=== PATIENT | female | born 2000 | race Two or more races ===

== ENCOUNTER 2023-01-10 09:54 | Emergency (ER) | payer OTHER ==
[~2023-01-10] VITALS: Ht 162.6 cm; Wt 113.4 kg
[2023-01-10] MEDS ORDERED: ACETAMINOPHEN ES 500 MG TABLET ONE (10:21)
[2023-01-10] MEDS ORDERED: OXYMETAZOLINE HCL NASAL SPRAY 30 ML BOTTLE NS ONE ×2 (10:21→10:30)
[2023-01-10] MEDS ORDERED: IBUPROFEN 400 MG TABLET ONE (10:21)
[2023-01-10] MEDS ORDERED: ACETAMINOPHEN ES 500 MG TABLET PO ONE (10:30)
[2023-01-10] MEDS ORDERED: IBUPROFEN 400 MG TABLET PO ONE (10:30)
[2023-01-10] MEDS ORDERED: OXYM15MI4 NS (11:39)
[2023-01-10] MEDS ORDERED: KETO10TA2 PO (11:39)
[2023-01-10] MEDS ORDERED: TRAM-351 PO (11:39)
[2023-01-10 11:42] VITALS: BP 120/89; TEMP 98.3; O2SAT 98
== END 2023-01-10 11:41 | disposition home or self-care (01) ==
LOC: ER 09:58
DX: S02.2XXA Fracture of nasal bones, initial encounter for closed fracture (principal); S06.9XAA Unspecified intracranial injury with loss of consciousness status unknown, initial encounter; W22.8XXA Striking against or struck by other objects, initial encounter; Y93.89 Activity, other specified; Y92.89 Other specified places as the place of occurrence of the external cause; Y99.8 Other external cause status
CPT/HCPCS: 70486-TC